=== PATIENT | female | born 1975 | race Caucasian/White ===

== ENCOUNTER 2019-09-30 13:31 | Emergency (ER) | payer BC ==
[~2019-09-30] VITALS: Ht 167.6 cm; Wt 122.0 kg
[2019-09-30 14:38] LABS: BASOPHILS ABSOLUTE AUTO 0.06 K/mm3 (0.00-0.23); BASOPHILS PERCENT AUTO 1 % (0-2); EOSINOPHILS ABSOLUTE AUTO 0.33 K/mm3 (0.00-0.68); EOSINOPHILS PERCENT AUTO 3 % (0-6); Hematocrit 46.6 % (33.0-51.0); Hemoglobin 15.3 g/dL (11.5-16.0); IMMATURE GRAN ABSOLUTE AUTO 0.04 K/mm3 (0.00-0.10); IMMATURE GRAN PERCENT AUTO 0 % (0-1); LYMPHOCYTES ABSOLUTE AUTO 2.49 K/mm3 (0.84-5.20); LYMPHOCYTES PERCENT AUTO 24 % (21-46); MONOCYTES ABSOLUTE AUTO 0.63 K/mm3 (0.16-1.47); MONOCYTES PERCENT AUTO 6 % (4-13); Mean Corpuscular HGB 30.1 pg (26.0-34.0); Mean Corpuscular HGB Conc 32.8 g/dL (31.5-36.5); Mean Corpuscular Volume 92 fL (80-100); Mean Platelet Volume 9.7 fL (9.1-12.4); NEUTROPHILS ABSOLUTE AUTO 7.06 K/mm3 (1.96-9.15); NEUTROPHILS PERCENT AUTO 67 % (41-73); Platelet Count 315 K/mm3 (150-400); RDW Coefficient Variation 12.9 % (11.7-14.2); RDW Standard Deviation 43.6 fL (35.1-46.3); Red Blood Cell Count 5.08 M/mm3 (3.80-5.20); White Blood Cell Count 10.61 K/mm3 (4.00-11.30)
[2019-09-30 15:07] LABS: Alanine Aminotransfer (ALT/SGP 45 U/L (12-78); Albumin, Blood 3.6 g/dL (3.4-5.0); Albumin/Globulin Ratio 0.8 (0.8-1.8); Alk Phos 64 U/L (50-136); Anion Gap 4 mmol/L (6-16); Aspartate Aminotrans (AST/SGOT 36 U/L (12-37); Bilirubin, Total 1.3 mg/dL (0.1-1.0); Blood Urea Nitrogen 8 mg/dL (8-24); CO2, Blood 29 mmol/L (21-32); Calcium, Blood 8.9 mg/dL (8.5-10.1); Chloride, Blood 106 mmol/L (98-108); Free Thyroxine 1.51 ng/dL (0.70-1.60); Globulin, Blood 4.7 g/dL (2.2-4.0); Glomerular Filtration Rate >60 (60-); Glucose, Blood 103 mg/dL (70-99); Sodium, Blood 139 mmol/L (136-145); Total Protein, Blood 8.3 g/dL (6.4-8.2)
[2019-09-30 15:11] LABS: Thyroid Stimulating Hormone 0.168 uIU/mL (0.360-4.800)
[2019-09-30] MEDS ORDERED: METO25ER (17:33)
[2019-09-30] MEDS ORDERED: VENL75ER PO (17:33)
[2019-09-30] MEDS ORDERED: EUTHYROX50 MCG (17:33)
[2019-09-30] MEDS ORDERED: AMPDEX5 (17:34)
[2019-09-30] MEDS ORDERED: MECL25 PO (18:46)
[2019-09-30] MEDS ORDERED: ONDA4ODT MM (18:46)
== END 2019-09-30 19:49 | disposition home or self-care (01) ==
LOC: ER 13:31
PROVIDERS: Physician Assistant
DX: H81.10 Benign paroxysmal vertigo, unspecified ear (principal); Z88.0 Allergy status to penicillin; Z88.2 Allergy status to sulfonamides; Z88.5 Allergy status to narcotic agent; Z91.030 Bee allergy status; Z79.899 Other long term (current) drug therapy; F32.9 Major depressive disorder, single episode, unspecified
CPT/HCPCS: 36415; 80053; 83690; 84439; 84443; 85025; 96361; 96374; 96375; 99284-25; A9270-GY; J0780; J1200; J2405; J7030

== ENCOUNTER → 2022-11-29 | Outpatient (CLI) | payer BC ==
[~2022-11-29] MED LIST: AMPDEX5; EUTHYROX50 MCG; MECL25 PO; METO25ER; ONDA4ODT MM; VENL75ER PO
[2022-11-29 15:34] LABS: Campylobacter Sp Not Detected (NOT DETECT); Plesiomonas Shigelloides Not Detected (NOT DETECT); Salmonella Sp Not Detected (NOT DETECT)
[2022-11-29 15:35] LABS: Adenovirus F 40/41 Not Detected (NOT DETECT); Astrovirus Not Detected (NOT DETECT); Cryptosporidium Not Detected (NOT DETECT); Cyclospora Cayetanensis Not Detected (NOT DETECT); E. Coli O157 Not Detected (NOT DETECT); Entamoeba Histolytica Not Detected (NOT DETECT); Enteroaggregative E. coli-EAEC Not Detected (NOT DETECT); Enteropathogenic E. coli-EPEC Not Detected (NOT DETECT); Enterotoxigenic E. coli-ETEC Not Detected (NOT DETECT); Giardia Lamblia Not Detected (NOT DETECT); Norovirus GI/GII Not Detected (NOT DETECT); Rotavirus A Not Detected (NOT DETECT); Sapovirus Not Detected (NOT DETECT); Shiga Toxin-prod E. coli-STEC Not Detected (NOT DETECT); Shigella/Enteroin E. coli-EIEC Not Detected (NOT DETECT); Vibrio Cholerae Not Detected (NOT DETECT); Vibrio Sp Not Detected (NOT DETECT); Yersinia Enterocolitica Not Detected (NOT DETECT)
== END ==
LOC: LAB SHORT 10:39 → LAB 10:39
PROVIDERS: Physician Assistant
DX: R19.7 Diarrhea, unspecified (principal); R11.14 Bilious vomiting
CPT/HCPCS: 87338; 87507

== ENCOUNTER 2025-01-17 09:50 | Day surgery (SDC) | payer BC ==
[~2025-01-17] VITALS: Ht 170.2 cm; Wt 104.6 kg
[~2025-01-17 09:50] MED LIST changes: +Lidocaine HCl 2% 10 ML SDA ONE; +TOPI100
[2025-01-17] MEDS ORDERED: METO100ER PO (10:18)
[2025-01-17] MEDS ORDERED: Synthroid/Levo0.2 MG (10:20)
[2025-01-17] MEDS ORDERED: PREMARIN0.45 MG PO (10:20)
[2025-01-17] MEDS ORDERED: TOPI100 PO (10:21)
[2025-01-17] MEDS ORDERED: VENLAFAXINE HC225 MG PO (10:21)
[2025-01-17] MEDS ORDERED: CLINGEL TOP (10:24)
[2025-01-17] MEDS ORDERED: ATOMOXETINE HCL80 M1 PO (10:26)
[2025-01-17] MEDS ORDERED: CeFAZolin Sodium 2,000 MG VIAL ONE (10:38)
[2025-01-17] MEDS ORDERED: FentaNYL Citrate 50 MCG/ML 2 ML Injection ONE (10:50)
[2025-01-17] MEDS ORDERED: Midazolam HCl 1MG / ML 2ML Vial ONE (10:50)
[2025-01-17] MEDS ORDERED: Dexamethasone Sod Phos 10 MG/ML 1ML VIAL ONE (11:00)
[2025-01-17] MEDS ORDERED: Ondansetron HCl 2 MG / ML 2ML Vial ONE (11:12)
[2025-01-17 12:53] VITALS: BP 110/55
== END 2025-01-17 12:44 | disposition home or self-care (01) ==
LOC: ORSCSDS 09:50
PROVIDERS: Orthopaedic Surgery
PROC: 0RNL0ZZ Release Right Elbow Joint, Open Approach (ICD-10-PCS; principal; 2025-01-17 12:00)
DX: M77.11 Lateral epicondylitis, right elbow (principal); I10 Essential (primary) hypertension; G47.33 Obstructive sleep apnea (adult) (pediatric); F41.9 Anxiety disorder, unspecified; F90.9 Attention-deficit hyperactivity disorder, unspecified type; E07.9 Disorder of thyroid, unspecified; E66.9 Obesity, unspecified; Z68.36 Body mass index [BMI] 36.0-36.9, adult; Z79.899 Other long term (current) drug therapy
CPT/HCPCS: C1713; J0690; J1100; J2003; J2250; J2405; J2704; J3010; J7120